=== PATIENT | female | born 1980 ===

== ENCOUNTER 2018-05-01 21:50 | Emergency (ER) | payer SELFPAY ==
[2018-05-01] MEDS ORDERED: CLINDAMYCIN 150MG PREPACK#6 BTL TAKEHOME ONE ×2 (22:39→22:55)
--- NOTE | 2018-05-01 22:40 | EDPHY ---
H & P Stated Complaint: pt with red swollen lump to r hickman x 10 days, worse since tuesday Time Seen by Provider: 05/01/18 21:58 HPI/ROS: 38 yo F presents c/o she noticed while running across a median , something hit her right hickman , possibly a piece of razor grass, it bothered her at first, but then seemed to be improving. she has working out and doing her regular activities, but has noticed purulent drainage and increased swelling today. No fever or chills. Review of systems As per HPI General no fever no chills no weakness HEENT no eye pain no eye discharge. No eye redness, no sore throat Respiratory no cough, no shortness of breath Cardiac no chest pain, no peripheral edema GI no abdominal pain, no diarrhea, no constipation, no nausea, no vomiting no flank pain, no hematuria, no dysuria Musculoskeletal no myalgias, no joint pain Heme no easy bruising, no easy bleeding Endo no polyuria, no polydipsia Skin pos rashes, no pruritus Neuro no syncope, no dizziness, no headaches Psych is no suicidal ideation, no homicidal ideation Source: Patient, Family Exam Limitations: No limitations - Personal History LMP (Females 10-55): Over 28 Days Ago Current Tetanus Diphtheria and Acellular Pertussis (TDAP): Yes - Medical/Surgical History Hx Asthma: No Hx Chronic Respiratory Disease: No Hx Diabetes: No Hx Cardiac Disease: No Hx Renal Disease: No Hx Cirrhosis: No Hx Alcoholism: No Hx HIV/AIDS: No Hx Splenectomy or Spleen Trauma: No Other PMH: denies - Family History Significant Family History: No pertinent family hx - Social History Smoking Status: Never smoked Alcohol Use: Occasionally Drug Use: None - Physical Exam Exam: 38 yo F alert and oriented in nad non toxic appearance at,nc neck no jvd lungs cta bilat heart rrr abd nabs ext right lower extremtiy right anterior lower leg with 4 cm swollen erythematous mass with purulent drainage, very ttp distal pulses intact no calf swelling pos right groin lymphadenopathy Constitutional: Initial Vital Signs Temperature (C) 36.4 C 05/01/18 22:00 Heart Rate 55 L 05/01/18 22:00 Respiratory Rate 16 05/01/18 22:00 Blood Pressure 108/72 05/01/18 22:00 O2 Sat (%) 98 05/01/18 22:00 O2 Delivery Mode Room Air Allergies/Adverse Reactions: No Known Allergies Allergy (Unverified 05/01/18 21:59) Home Medications: Medication Instructions Recorded Clindamycin HCl [Clindamycin] 300 mg PO QID 10 Days #40 mg 05/01/18 Medical Decision Making Procedures: Abscess-procedure note The patient gave verbal consent for drainage of a subcutaneous abscess. Risk of bleeding and pain were explained to the patient. The most fluctuant aspect of the abscess was identified. Local anesthetic lidocaine 1% was used. A scalpel was used to incise the abscess. 5 mL of purulent drainage was expressed. Abscess was irrigated and packed. The patient tolerated procedure well. ED Course/Re-evaluation: Patient seen and evaluated for redness and swelling on her right anterior lower leg. Incision and drainage performed, small amount of purulent dc, wound cx sent Imp right lower leg abscess with local cellulitis Plan I and D Clindamycin Warm compresses Pt advised to return immediately if worsening. Differential Diagnosis: Differential diagnosis considered but not limited to Right lower extremity abscess, right lower extremity abscess with cellulitis, cellulitis, hematoma, infected hematoma - Data Points Microbiology Results: MICROBIOLOGY 05/01/18 22:32 Leg - Eswab Gram Stain - Final Medications Given: Discontinued Medications Hydrocodone Bitart/Acetaminophen ([place] 5/325) 1 tab PO EDNOW ONE Stop: 05/01/18 23:08 Last Admin: 05/01/18 23:08 Dose: 1 tab Clindamycin (Cleocin 150 Mg Prepack#6) 1 btl TAKEHOME EDNOW ONE PRN Reason: Protocol Stop: 05/01/18 22:40 Last Admin: 05/01/18 22:58 Dose: 1 btl Clindamycin (Cleocin 150 Mg Prepack#6) 1 btl TAKEHOME EDNOW ONE PRN Reason: Protocol Stop: 05/01/18 22:56 Last Admin: 05/01/18 22:59 Dose: 1 btl Departure - Departure Disposition: Home, Routine, Self-Care Clinical Impression: Abscess of right lower leg Condition: Good Instructions: Clindamycin (By mouth), Hydrocodone/Acetaminophen (By mouth), Abscess (ED) Additional Instructions: Leave packing in for 2-3 days, it is ok if it falls out. Warm compresses to encourage drainage Return if worsening Clindamycin 300 mg every 6 hours for 10 days Referrals: Patient,NotPresent [Primary Care Provider] - As per Instructions Prescriptions: Clindamycin HCl [Clindamycin] 300 mg PO QID 10 Days #40 mg
[2018-05-01] MEDS ORDERED: HYDROCODONE/APAP 5/325 TAB ONE (23:06)
[2018-05-01] MEDS ORDERED: HYDROCODONE/APAP 5/325 TAB PO ONE (23:07)
[2018-05-01 23:17] VITALS: BP 106/70
== END 2018-05-01 23:10 | disposition home or self-care (01) ==
LOC: CED 21:50
PROC: 0H9KXZZ Drainage of Right Lower Leg Skin, External Approach (ICD-10-PCS; principal; 2018-05-01)
DX: L02.415 Cutaneous abscess of right lower limb (principal)